=== PATIENT | female | born 1975 | race Caucasian/White ===

== ENCOUNTER 2023-10-25 14:02 | Emergency (ER) | payer OTHER ==
[~2023-10-25] VITALS: Ht 157.5 cm; Wt 45.4 kg
[2023-10-25 15:11] LABS: APPEARANCE,URINE SLIGHTLY CLOUDY (CLEAR); BILIRUBIN,URINE NEGATIVE (NEGATIVE); BLOOD, URINE 3+ Ery/uL (NEGATIVE); COLOR,URINE YELLOW (YELLOW); KETONES,URINE NEGATIVE (NEGATIVE); LEUKOCYTE ESTERASE ,URINE NEGATIVE (NEGATIVE); NITRITE, URINE NEGATIVE (NEGATIVE); PH,URINE 8.5 (5.0-8.0); PROTEIN,URINE 2+ mg/dl (NEGATIVE); UGLUCOSE NEGATIVE (NEGATIVE); UROBILINOGEN,URINE 0.2 EU/dL (0.2)
[2023-10-25 16:02] VITALS: BP 135/90; TEMP 98; O2SAT 100
[2023-10-25 16:06] LABS: ADD URINE CULTURE NO; BACTERIA,URINE Rare /HPF (None Seen); SQUAMOUS EPITHELIAL CELL,UR Rare /HPF (None Seen)
[2023-10-25 16:07] LABS: WBC,URINE NONE SEEN /HPF (0-3)
[2023-10-25 16:08] LABS: RBC,URINE 21-50 /HPF (0-2)
== END 2023-10-25 16:02 | disposition home or self-care (01) ==
LOC: ER 14:11
DX: R33.9 Retention of urine, unspecified (principal)
CPT/HCPCS: 81001